=== PATIENT | female | born 2000 | race Caucasian/White ===

== ENCOUNTER 2022-07-30 15:39 | Outpatient (CLI) | payer BC, SELFPAY ==
[2022-07-30 20:00] LABS: Chlamydia DNA Amplified* NOT DETECTED (No Detected); GC DNA Amplified* NOT DETECTED (No Detected)
== END 2022-07-30 15:40 | disposition home or self-care (01) ==
LOC: NFLDREF 15:40
PROVIDERS: Visit Provider Obstetrics & Gynecology
DX: Z31.41 Encounter for fertility testing (principal); Z12.4 Encounter for screening for malignant neoplasm of cervix
CPT/HCPCS: 87491; 87591

== ENCOUNTER 2022-08-08 11:00 | Outpatient (CLI) | payer BC, SELFPAY ==
[2022-08-10 19:27] LABS: Follicle Stimulating Hormone 5.2 IU/L; Luteinizing Hormone 10.3 IU/L
[2022-08-11 17:33] LABS: Estradiol by TMS 20.7 pg/mL
== END 2022-08-08 11:01 | disposition home or self-care (01) ==
PROVIDERS: Visit Provider Obstetrics & Gynecology
DX: Z31.9 Encounter for procreative management, unspecified (principal)
CPT/HCPCS: 82670; 83001; 83002